=== PATIENT | male | born 1990 | race Caucasian/White ===

== ENCOUNTER 2020-09-07 20:40 | Emergency (ER) | payer SELFPAY ==
[~2020-09-07] VITALS: Ht 182.9 cm; Wt 77.1 kg
[2020-09-07 20:42] VITALS: BP 153/95; Ht 182.9 cm; Wt 77.1 kg
== END 2020-09-07 21:06 | disposition short-term general hospital (02) ==
LOC: ED 20:40
DX: S21.231A Puncture wound without foreign body of right back wall of thorax without penetration into thoracic cavity, initial encounter (principal); W34.00XA Accidental discharge from unspecified firearms or gun, initial encounter; Y93.89 Activity, other specified; Y92.89 Other specified places as the place of occurrence of the external cause; Y99.8 Other external cause status